=== PATIENT | female | born 1980 | race Caucasian/White ===

== ENCOUNTER 2018-09-24 20:07 | Emergency (ER) | payer OTHER ==
[2018-09-24 20:28] VITALS: BP 124/83
--- NOTE | 2018-09-24 21:02 | UC ---
Lower Extremity/Ankle HPI - HPI Summary HPI Summary: 38 y/o female presents to the urgent care c/o Pt was moving her friend's stuff last week and missed a step, hurting both ankles. Seen at an in [place] and was dx with severe sprains. The right ankle is worse today that the other. No imaging done last week. - History of Current Complaint Chief Complaint: UCLowerExtremity Stated Complaint: BOTH ANKLES Time Seen by Provider: 09/24/18 20:58 Hx Obtained From: Patient Hx Last Menstrual Period: [id number] Pain Intensity: 7 - Allergies/Home Medications Allergies/Adverse Reactions: Allergies Allergy/AdvReac Type Severity Reaction Status Date / Time Hay and Straw Allergy Wheezing Uncoded 09/24/18 20:28 Home Medications: Home Medications buPROPion SR TAB* [Wellbutrin SR TAB*] 150 mg PO DAILY 09/24/18 [History Confirmed 09/24/18] PMH/Surg Hx/FS Hx/Imm Hx - Surgical History Surgical History: None - Family History Family History: no cardio-vascular issues in family - Social History Alcohol Use: Occasionally Alcohol Amount: 2-3 drinks/week Substance Use Type: None Smoking Status (MU): Former Smoker Type: Cigarettes Have You Smoked in the Last Year: No When Did the Patient Quit Smoking/Using Tobacco: 2003 Physical Exam Vital Signs: Initial Vital Signs Temp 99.1 F 09/24/18 20:21 Pulse 85 09/24/18 20:21 Resp 16 09/24/18 20:21 BP 124/83 09/24/18 20:21 Pulse Ox 100 09/24/18 20:21 Lower Extremity Course/Dx - Differential Dx/Diagnosis Differential Diagnosis/HQI/PQRI: Compartment Syndrome, Contusion, Dislocation, Fracture (Closed), Sprain, Strain, Tendonitis Provider Diagnosis: Right ankle sprain, Left ankle sprain, Right foot sprain Discharge - Sign-Out/Discharge Documenting (check all that apply): Patient Departure - d/c home All imaging exams completed and their final reports reviewed: No - Discharge Plan Condition: Stable Disposition: HOME Patient Education Materials: Ankle Sprain (ED), Foot Sprain (ED) Referrals: Norma Alaniz MD [Primary Care Provider] - 1 Week [facility] [Provider Group] - 3 Days Avtar Chappell MD [Medical Doctor] - 3 Days Additional Instructions: 1-Please take Ibuprofen PO q6-8hrs prn after meals as directed to alleviate pain and swelling. 2-Please apply ice, keep your RT ankle and RT foot immobilized with the TALHA bandage and CAM boot. Avoid weight bearing using the crutches. Elevate your ankle 3- Final radiology reports still pending. You will be notified of any abnormality tomorrow. 3- Please f/u with Orthopedic Dr Louise or Sports Medicine in 3 days if not improvement of symptoms for further evaluation and treatment. - Billing Disposition and Condition Condition: STABLE Disposition: Home
[2018-09-24] MEDS ORDERED: Ibuprofen TAB* 400 MG PO ONE (21:13)
--- NOTE | 2018-09-25 08:05 | UC ---
- Progress Note Progress Note: Final x-ray report reviewed. Order Information: ANKLES BILATERAL Accession Number: [id number] CPT: 32367 INDICATION: Bilateral ankle injury. TECHNIQUE: 3 views of both ankles were obtained. FINDINGS: There is lateral soft tissue swelling in both ankles. The bones are in normal alignment. No fracture is seen. IMPRESSION: SOFT TISSUE SWELLING, NO FRACTURE IS SEEN. Order Information: FOOT RIGHT 3+ VWS Accession Number: [id number] CPT: 25545 Indication: Right foot pain. 3 views of the right foot demonstrates no fracture or dislocation. No other bone or joint abnormality is identified. IMPRESSION: No fracture of the right foot is noted. Consistent with wet read by provider. No change in plan of care. Course/Dx - Diagnoses Provider Diagnoses: Right ankle sprain, Left ankle sprain, Right foot sprain Discharge - Sign-Out/Discharge Documenting (check all that apply): Post-Discharge Follow Up All imaging exams completed and their final reports reviewed: Yes - Discharge Plan Condition: Stable Disposition: HOME Patient Education Materials: Ankle Sprain (ED), Foot Sprain (ED) Referrals: [facility] [Provider Group] - 3 Days Avtar Chappell MD [Medical Doctor] - 3 Days Norma Alaniz MD [Primary Care Provider] - 1 Week Additional Instructions: 1-Please take Ibuprofen PO q6-8hrs prn after meals as directed to alleviate pain and swelling. 2-Please apply ice, keep your RT ankle and RT foot immobilized with the TALHA bandage and CAM boot. Avoid weight bearing using the crutches. Elevate your ankle 3- Final radiology reports still pending. You will be notified of any abnormality tomorrow. 3- Please f/u with Orthopedic Dr Louise or Sports Medicine in 3 days if not improvement of symptoms for further evaluation and treatment. - Billing Disposition and Condition Condition: STABLE Disposition: Home
== END 2018-09-24 22:40 | disposition home or self-care (01) ==
LOC: UCEAST 20:07
DX: S93.401A Sprain of unspecified ligament of right ankle, initial encounter (principal); S93.402A Sprain of unspecified ligament of left ankle, initial encounter; S93.601A Unspecified sprain of right foot, initial encounter; W10.9XXA Fall (on) (from) unspecified stairs and steps, initial encounter; Y93.89 Activity, other specified; Y92.9 Unspecified place or not applicable; Z87.891 Personal history of nicotine dependence
CPT/HCPCS: 99213; A9270-GY; G0463